=== PATIENT | female | born 1940 | race Caucasian/White ===

== ENCOUNTER 2017-09-05 14:23 | Observation (INO) | payer BC ==
[~2017-09-05] VITALS: Ht 162.6 cm; Wt 59.9 kg
[2017-09-05] MEDS ORDERED: METOPROLOL TARTRATE 1 MG/ML VIAL IV STA (15:05)
[2017-09-05 15:11] LABS: BASO % 0.5 %; BASO ABS # 0.03 K/uL (0-0.2); EOS % 0.8 %; EOS ABS # 0.05 K/uL (0-0.5); HEMATOCRIT 42.9 % (37-47); HEMOGLOBIN 14.4 g/dL (12.0-16.0); IG# 0.01 K/uL (0.00-0.02); LYMPH % 28.3 %; LYMPH ABS # 1.75 K/uL (1.2-3.4); MEAN CELL VOLUME 98.8 fL (80-100); MEAN CORPUSCULAR HEMOGLOBIN 33.2 pg (25-34); MEAN CORPUSCULAR HGB CONC 33.6 g/dl (32-36); MEAN PLATELET VOLUME 9.4 fL (7.4-10.4); MONO % 8.6 %; MONO ABS # 0.53 K/uL (0.11-0.59); NEUT % 61.6 %; NEUT ABS # 3.82 K/uL (1.4-6.5); PLATELET COUNT 230 K/uL (130-400); RED CELL DISTRIBUTION WIDTH CV 12.8 % (11.5-14.5); RED CELL DISTRIBUTION WIDTH SD 46.6 fL (36.4-46.3); WHITE BLOOD COUNT 6.19 K/uL (4.8-10.8)
--- NOTE | 2017-09-05 15:11 | DIAGNOSTIC IMAGING REPORT ---
CHEST ONE VIEW PORTABLE CLINICAL HISTORY: cp dyspnea COMPARISON STUDY: No previous studies for comparison. FINDINGS: The bones soft tissues and hemidiaphragms are normal. The cardiomediastinal silhouette is normal. The lungs are clear. The pulmonary vasculature is normal. IMPRESSION: Negative chest. The above report was generated using voice recognition software. It may contain grammatical, syntax or spelling errors. Electronically signed by: Austin Patel M.D. 09/05/2017 3:10 PM Dictated Date/Time: 09/05/2017 3:10 PM
[2017-09-05 15:22] LABS: PTT PATIENT 22.5 SECONDS (21.0-31.0)
[2017-09-05 15:29] LABS: CALCIUM 9.6 mg/dl (8.5-10.1); CREATININE 0.99 mg/dl (0.60-1.20); POTASSIUM 3.9 mmol/L (3.5-5.1)
[2017-09-05] MEDS ORDERED: HEPARIN 25000 UNIT/500 ML D5W ONE (16:30)
[2017-09-05] MEDS ORDERED: HEPARIN SOD 5000 UNIT/0.5 ML CARP ONE (16:30)
[2017-09-05] MEDS ORDERED: MULT-506 PO (16:44)
[2017-09-05] MEDS ORDERED: ONDANSETRON INJ 2 MG/ML 2 ML VIAL IV PRN (17:00)
[2017-09-05] MEDS ORDERED: ACETAMINOPHEN 325 MG TAB PO PRN (17:00)
--- NOTE | 2017-09-05 19:27 | EMERGENCY ROOM VISIT NOTE ---
History Report prepared by Anjana: Fabiano Burdick Under the Supervision of: Dr. Leonides Singer M.D. First contact with patient: 14:50 Chief Complaint: CARDIAC ASSESSMENT Stated Complaint: HEART ARYTHMIA Nursing Triage Summary: patient had surgery this am on a cataract/ [place] was [place]. she had an EKG afterward and it was abdnormal. asher called her PCP and spoke to them. she went to the PCP and had another EKG and it was abdnormal as well and sent her here for evaluation. patient has been pain free and feels fine. History of Present Illness The patient is a 76 year old female who presents to the Emergency Room with complaints of intermittent heart palpitations beginning a few hours ago. The patient had a cataract removed from her right eye earlier today (5.5 hours ago) , during which she was under anesthesia. She had an ECG following the surgery due to experiencing heart palpitations which showed an abnormality. She was then seen by her PCP afterwards and had a repeat ECG which was still abnormal. The patient denies chest pain, SOB, lightheadedness, fevers, vomiting, diarrhea , or abdominal pain. She has no known history of A-fib, or thyroid disease. She notes that she feels very anxious. The patient was given Ofloxacin and Prednisolone drops following the surgery. She otherwise denies any other medications. Source of History: patient Onset: A few hours ago Quality: other (heart palpitations) Timing: intermittent Modifying Factors (Relieving): other (None) Associated Symptoms: No fevers, No chest pain, No SOB, No vomiting, No abdominal pain Note: The patient denies lightheadedness. Review of Systems See HPI for pertinent positives & negatives. A total of 10 systems reviewed and were otherwise negative. Past Medical & Surgical Medical Problems: (1) Atrial flutter Surgical Problems: (1) History of arthroscopy of left shoulder (2) History of tubal ligation Family History No pertinent family history stated. Social History Smoking Status: Never Smoker Marital Status: Occupation Status: employed Current/Historical Medications Scheduled Multivitamin (Multivitamin), 1 TAB PO DAILY Allergies Coded Allergies: No Known Allergies (Unverified , 09/05/17) Physical Exam Vital Signs Date Time Temp Pulse Resp B/P (MAP) Pulse Ox O2 Delivery O2 Flow Rate FiO2 09/05/17 17:52 82 16 164/93 98 Room Air 09/05/17 16:36 93 22 166/105 97 Room Air 09/05/17 15:30 68 09/05/17 15:30 78 18 141/91 97 Room Air 09/05/17 15:19 126 16 150/95 97 09/05/17 15:18 127 150/95 09/05/17 15:09 127 09/05/17 14:58 98 Room Air 09/05/17 14:33 36.8 129 20 153/98 97 Room Air Physical Exam Constitutional: Vital signs reviewed. Eyes: Conjunctiva are noninjected. Post-operative changes to the right eye. ENT: Pharynx is clear without erythema or exudate. Mucous membranes are moist. Neck supple without meningeal signs. Respiratory: Clear to auscultation bilaterally. Breath sounds are equal bilaterally. Cardiovascular: Tachycardic with a heart rate of 126. Regular rhythm. No rubs or gallops. GI: Soft, nondistended and nontender. Bowel sounds are present. Musculoskeletal: No peripheral edema. No lower extremity tenderness. Integumentary: No cyanosis. Neurological: The patient is awake and alert. No focal deficits. Psychiatric: Normal affect. Medical Decision & Procedures ER Provider Diagnostic Interpretation: Radiology results as stated below per my review and the radiologist's interpretation: CHEST ONE VIEW PORTABLE FINDINGS: The bones soft tissues and hemidiaphragms are normal. The cardiomediastinal silhouette is normal. The lungs are clear. The pulmonary vasculature is normal. IMPRESSION: Negative chest. The above report was generated using voice recognition software. It may contain grammatical, syntax or spelling errors. Electronically signed by: Austin Patel M.D. 09/05/2017 3:10 PM Laboratory Results 09/05/17 15:00 Red Blood Count 4.34, Mean Corpuscular Volume 98.8, Mean Corpuscular Hemoglobin 33.2, Mean Corpuscular Hemoglobin Concent 33.6, Mean Platelet Volume 9.4, Neutrophils (%) (Auto) 61.6, Lymphocytes (%) (Auto) 28.3, Monocytes (%) (Auto) 8.6, Eosinophils (%) (Auto) 0.8, Basophils (%) (Auto) 0.5, Neutrophils # (Auto) 3.82, Lymphocytes # (Auto) 1.75, Monocytes # (Auto) 0.53, Eosinophils # (Auto) 0.05, Basophils # (Auto) 0.03 09/05/17 15:00 Test 09/05/17 15:00 09/05/17 15:07 White Blood Count 6.19 K/uL (4.8-10.8) Red Blood Count 4.34 M/uL (4.2-5.4) Hemoglobin 14.4 g/dL (12.0-16.0) Hematocrit 42.9 % (37-47) Mean Corpuscular Volume 98.8 fL (80-100) Mean Corpuscular Hemoglobin 33.2 pg (25-34) Mean Corpuscular Hemoglobin Concent 33.6 g/dl (32-36) Platelet Count 230 K/uL (130-400) Mean Platelet Volume 9.4 fL (7.4-10.4) Neutrophils (%) (Auto) 61.6 % Lymphocytes (%) (Auto) 28.3 % Monocytes (%) (Auto) 8.6 % Eosinophils (%) (Auto) 0.8 % Basophils (%) (Auto) 0.5 % Neutrophils # (Auto) 3.82 K/uL (1.4-6.5) Lymphocytes # (Auto) 1.75 K/uL (1.2-3.4) Monocytes # (Auto) 0.53 K/uL (0.11-0.59) Eosinophils # (Auto) 0.05 K/uL (0-0.5) Basophils # (Auto) 0.03 K/uL (0-0.2) RDW Standard Deviation 46.6 fL (36.4-46.3) RDW Coefficient of Variation 12.8 % (11.5-14.5) Immature Granulocyte % (Auto) 0.2 % Immature Granulocyte # (Auto) 0.01 K/uL (0.00-0.02) Prothrombin Time 10.7 SECONDS (9.0-12.0) Prothromb Time International Ratio 1.0 (0.9-1.1) Activated Partial Thromboplast Time 22.5 SECONDS (21.0-31.0) Partial Thromboplastin Ratio 0.9 Anion Gap 8.0 mmol/L (3-11) Est Creatinine Clear Calc Drug Dose 42.4 ml/min Estimated GFR () 64.6 Estimated GFR (Non- 55.7 BUN/Creatinine Ratio 14.6 (10-20) Calcium Level 9.6 mg/dl (8.5-10.1) Magnesium Level 2.1 mg/dl (1.8-2.4) Thyroid Stimulating Hormone (TSH) 2.730 uIu/ml (0.300-4.500) Free Thyroxine 1.23 ng/dl (0.80-1.60) Bedside Troponin I < 0.030 ng/ml (0-0.045) Laboratory results as reviewed by me. Medications Administered Medications (Trade) Dose Ordered Sig/Janet Route Start Time Stop Time Status Last Admin Dose Admin Metoprolol Tartrate (Lopressor Iv) 2.5 mg NOW STAT IV 09/05/17 15:05 09/05/17 15:06 DC 09/05/17 15:18 2.5 MG Heparin Sodium/ Dextrose (Heparin 25,000 Unit/500ml D5W) 25,000 unit STK-MED ONCE .ROUTE 09/05/17 16:30 09/05/17 16:31 DC 09/05/17 16:35 25,000 UNIT Heparin Sodium (Porcine) (Heparin Sq 5000 Unit/0.5ml) 5,000 unit STK-MED ONCE .ROUTE 09/05/17 16:30 09/05/17 16:31 DC 09/05/17 16:33 5,000 UNIT ECG Indication: palpitations Rate (beats per minute): 128 Rhythm: sinus tachycardia Findings: no ectopy, other (Non-specific ST/T wave changes inferior and lateral leads.) Change: Patient's electrocardiograms per my interpretation. Pre-Hospital ECG's: ECG from [facility] in [place] at 9:15am this morning showed A-flutter. ECG at [facility] at 2:00pm today showed A-flutter as well. Repeat ECG shows atrial flutter with a variable AV block. No acute ischemic change seen. QRS is 82. ED Course 1451: The patient was evaluated in room B3B. A complete history and physical exam was performed. 1505: Ordered Lopressor 2.5 mg IV. 1526: I checked in on the patient. Her heart rate has dropped to the 80's after receiving Lopressor. 1550: I discussed the patient's test results with her. Her heart rate is in the 70's and 80's, and is still A-flutter. 1600: Upon reevaluation, the patient is resting. I discussed girish's findings with her. She verbalized agreement of the treatment plan. She denies any melanotic stools, or rectal bleeding. The patient will be evaluated for further management. 1608: Ordered Heparin Sodium/Dextrose. Medical Decision This is a 76-year-old female who presents with palpitations. Differential diagnosis includes atrial fibrillation with RVR, dysrhythmia, sinus tachycardia , metabolic derangement, thyroid storm, electrolyte abnormality. I did perform a limited focused review of portions of the patient's old chart on the electronic medical record. The patient has had no recent pertinent visits to this hospital. I did evaluate the patient as noted above. The patient is presenting with palpitations. She otherwise denies any other symptoms. IV access was established. The patient was placed on a continuous vehicle monitor technician. I did order and personally review the patient's 12-lead EKG and chest x-ray as described above. The patient has what initially appeared to be sinus tachycardia. I did obtain her EKGs from earlier today which showed atrial flutter. I therefore treated her with Lopressor 2.5 mg IV. Her rate came down significantly into the 80s. I did order a repeat EKG which shows atrial flutter with variable block. I did order and review the patient's blood work as noted in the electronic medical record. I did reassess the patient multiple times. She remained in atrial flutter but with a normal rate. Discussed the case with the pool hall inspector on-call who recommended placing the patient on IV heparin and admitting her to the hospital. I did talk to her stage technician to make sure that there is no contraindication to the heparin given her recent surgery. He stated that there was no contraindication to heparin. I did start the patient on a heparin drip and gave her initial bolus. I did discuss case with the hospitalist and telephonic nurse case manager. Medication Reconcilliation Current Medication List: was personally reviewed by me Blood Pressure Screening Patient's blood pressure: Elevated blood pressure Blood pressure disposition: Referred to PCP Consults Time Called: 1550 Consulting Physician: Dr. Starks - Cardiology Returned Call: [phone] Starks of Cardiology. He recommends the patient be brought into the hospital for further evaluation. He also recommends placing the patient on IV heparin as long as there is no counter indication from the cataract surgery. Additional Consults: Time Called: 1558 Consulted Physician: Mita WELSH - [facility] Hospitalist Returned Call: [phone] Additional Comments: I spoke with Mita WELSH of [facility]. We discussed the patient and her results. The patient will be further evaluated by Jordan. Time Called: 1605 Consulted Physician: Dr. Torres - Ophthalmology Returned Call: [phone] Additional Comments: I spoke with Dr. Torres of Ophthalmology. He states that there is no counter indication to heparin for the cataract surgery. Impression Primary Impression: Atrial flutter with rapid ventricular response Critical Care I have personally spent 32 minutes of critical care time in the direct management of this patient. This includes bedside care, interpretation of diagnostic studies, and testing, discussion with consultants, patient, and family members, and other required patient management activities. This 32 minutes is in excess of all separately billable procedures. Scribe Attestation The scribe's documentation has been prepared under my direct and personally reviewed by me in its entirety. I confirm that the note above accurately reflects all work, treatment, procedures, and medical decision making performed by me. Departure Information Dispostion Being Evaluated By Hospitalist Referrals Nichole Mishra M.D. (PCP) Patient Instructions My [facility]
--- NOTE | 2017-09-05 19:30 | History and Physical ---
History & Physical Date & Time of Service: Sep 05, 2017 ~ 16:30 Chief Complaint: Fast Heart Rate Primary Care Physician: Nichole Mishra M.D. History of Present Illness 76 year old female who presents to the ED for evaluation of elevated heart rate. Patient underwent cataract surgery today and after the procedure she was found to have an elevated heart rate. She was then evaluated in her PCPs office who found her to be in atrial flutter. She was then referred to the ED for further eval. Patient reports she has felt nervous about the cataract surgery for about the past month. She has had chest pressure at times which she attributes to the anxiety. She denies palpitations. No shortness of breath, lightheadedness, dizziness, diaphoresis, or syncopal events. She denies orthopnea and lower extremity edema. 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 No abdominal pain, nausea, vomiting, or diarrhea. Weight as been stable. No fevers or chills. She denies urinary symptoms. She admits that she has not kept up to date with her routine screenings including colonoscopy, mammograms, and gyne exams. She was seen by a PCP recently for pre op for her cataract surgery but otherwise has not been seen by a physician for almost 30 years. Past Medical/Surgical History Surgical Problems: (1) History of arthroscopy of left shoulder Status: Chronic (2) History of tubal ligation Status: Chronic Family History FH: Alzheimers disease MOTHER Social History Smoking Status: Never Smoker Alcohol Use: occasionally Marital Status: Immunizations History of Tetanus Vaccine?: Yes Tetanus Immunization Date: Aug 15, 2017 History of Pneumococcal: Yes Pneumococcal Date: Aug 15, 2017 Allergies Coded Allergies: No Known Allergies (Unverified , 09/05/17) Home Medications Scheduled Multivitamin (Multivitamin), 1 TAB PO DAILY Review of Systems ROS per HPI, all other systems reviewed and negative Physical Exam Vital Signs Date Time Temp Pulse Resp B/P (MAP) Pulse Ox O2 Delivery O2 Flow Rate FiO2 09/05/17 17:52 82 16 164/93 98 Room Air 09/05/17 16:36 93 22 166/105 97 Room Air 09/05/17 15:30 68 09/05/17 15:30 78 18 141/91 97 Room Air 09/05/17 15:19 126 16 150/95 97 09/05/17 15:18 127 150/95 09/05/17 15:09 127 09/05/17 14:58 98 Room Air 09/05/17 14:33 36.8 129 20 153/98 97 Room Air General Appearance: WD/WN, no apparent distress Head: normocephalic, atraumatic Eyes: normal inspection, EOMI, sclerae normal ENT: hearing grossly normal, + pertinent finding (mucous membranes moist) Neck: supple, no JVD, trachea midline Respiratory/Chest: lungs clear, normal breath sounds, no respiratory distress Cardiovascular: no edema, normal peripheral pulses, + irregularly irregular ( rate in the 90s) Abdomen/GI: normal bowel sounds, non tender, soft, no organomegaly Extremities/Musculoskelatal: normal inspection, no calf tenderness, normal capillary refill Neurologic/Psych: no motor/sensory deficits, alert, normal mood/affect, oriented x 3 Skin: + pertinent finding (left distal sanz - 2cm raised lesion with necrotic appearing base with mild surrouding erythema, no drainage noted) Diagnostics Laboratory Results Results Past 24 Hours Test 09/05/17 15:00 09/05/17 15:07 Range/Units White Blood Count 6.19 4.8-10.8 K/uL Red Blood Count 4.34 4.2-5.4 M/uL Hemoglobin 14.4 12.0-16.0 g/dL Hematocrit 42.9 37-47 % Mean Corpuscular Volume 98.8 80-100 fL Mean Corpuscular Hemoglobin 33.2 25-34 pg Mean Corpuscular Hemoglobin Concent 33.6 32-36 g/dl Platelet Count 230 130-400 K/uL Mean Platelet Volume 9.4 7.4-10.4 fL Neutrophils (%) (Auto) 61.6 % Lymphocytes (%) (Auto) 28.3 % Monocytes (%) (Auto) 8.6 % Eosinophils (%) (Auto) 0.8 % Basophils (%) (Auto) 0.5 % Neutrophils # (Auto) 3.82 1.4-6.5 K/uL Lymphocytes # (Auto) 1.75 1.2-3.4 K/uL Monocytes # (Auto) 0.53 0.11-0.59 K/uL Eosinophils # (Auto) 0.05 0-0.5 K/uL Basophils # (Auto) 0.03 0-0.2 K/uL RDW Standard Deviation 46.6 36.4-46.3 fL RDW Coefficient of Variation 12.8 11.5-14.5 % Immature Granulocyte % (Auto) 0.2 % Immature Granulocyte # (Auto) 0.01 0.00-0.02 K/uL Prothrombin Time 10.7 9.0-12.0 SECONDS Prothromb Time International Ratio 1.0 0.9-1.1 Activated Partial Thromboplast Time 22.5 21.0-31.0 SECONDS Partial Thromboplastin Ratio 0.9 Sodium Level 140 136-145 mmol/L Potassium Level 3.9 3.5-5.1 mmol/L Chloride Level 104 98-107 mmol/L Carbon Dioxide Level 28 21-32 mmol/L Anion Gap 8.0 3-11 mmol/L Blood Urea Nitrogen 15 7-18 mg/dl Creatinine 0.99 0.60-1.20 mg/dl Est Creatinine Clear Calc Drug Dose 42.4 ml/min Estimated GFR () 64.6 Estimated GFR (Non- 55.7 BUN/Creatinine Ratio 14.6 10-20 Random Glucose 86 70-99 mg/dl Calcium Level 9.6 8.5-10.1 mg/dl Magnesium Level 2.1 1.8-2.4 mg/dl Thyroid Stimulating Hormone (TSH) 2.730 0.300-4.500 uIu/ml Free Thyroxine 1.23 0.80-1.60 ng/dl Bedside Troponin I < 0.030 0-0.045 ng/ml Diagnostic Radiology CXR IMPRESSION: Negative chest. Impression Assessment and Plan NEW ONSET ATRIAL FLUTTER - admit to tele - patient presenting after cataract surgery where she was found to have an elevated HR, she was then seen by her PCP where EKG showed atrial flutter - in the ED, EKG showed atrial flutter with 2:1 block - s/p 2.5mg metoprolol IV in the ED with improved in HR; will continue with metoprolol 12.5mg PO q6h - noted WNL electrolytes and TSH; no obvious source of infection - CHADS2 score difficult to calculate given her lack of follow up with primary care but would be at least 1 for age - ED discussed with Dr. Torres from ophthalmology who stated there would not be a contraindication to heparin - heparin started in the ED, will continue with - continue to cycle cardiac enzymes, check resting echo - cardio consult LEFT SANZ LESION - concerning for malignancy - discussed with Dr. Li who advised close outpatient follow up - phone number to scheduled: [phone] RECENT CATARACT SURGERY - needs to have eye pressures checked tomorrow - if not discharged, may need inpatient ophthalmology evaluation DVT PROPHYLAXIS - heparin gtt DISPO - The patient will be placed as observation status for now until further work up is complete. ADDENDUM: This is a 76 year old female with no significant PMH, has not followed with any doctors since her childbirth. Was seen by ophthalmology for cataract surgery. Had HRs in the 130s-140s; was seen by PA in PCP's office and was sent here for further evaluation. Presented here, and found to have atrial flutter. Started on IV heparin and started on PO Lopressor. Echo pending; cardiology consulted. Monitor BP; monitor if Lopressor controls the blood pressure. VTE Prophylaxis VTE Risk Assessment Done? Y/N: Yes Risk Level: Moderate
[2017-09-05] MEDS ORDERED: HEPARIN 25,000 UNIT/500ML D5W 500 ML IV PRN (20:00)
[2017-09-05 20:03] VITALS: BP 121/72; PULSE 80; TEMP 37.2; O2SAT 95
[2017-09-05 20:13] VITALS: BP 147/93; PULSE 107; TEMP 36.7; O2SAT 97; Ht 162.6 cm; Wt 59.9 kg
[2017-09-05] MEDS ORDERED: IV FLUIDS COMPLETED PRN (20:30)
[2017-09-05] MEDS ORDERED: PRED1SUS17 OPR (21:35)
[2017-09-05] MEDS ORDERED: [UNRECOGNIZED DRUG - OTHER] OPR (21:35)
[2017-09-05] MEDS ORDERED: HOME MED ADMINISTRATION ONE (21:45)
[2017-09-05] MEDS: PrednisoLONE ACET 1% OP SUSP 5 ML BTL OPR SCH (22:19)
[2017-09-05] MEDS: OFLOXACIN 0.3% OP SOLN 5 ML BTL OPR SCH (22:20)
[2017-09-05 23:37] VITALS: BP 125/55; PULSE 79; TEMP 36.7; O2SAT 96
[2017-09-06] VITALS (7 sets, daily range): BP systolic 119–156; BP diastolic 78–93; PULSE 70–89; TEMP 36.4–36.8; O2SAT 95–97
[2017-09-06 00:18] LABS: PTT PATIENT 108.7 SECONDS (21.0-31.0)
[2017-09-06 03:28] LABS: HEMATOCRIT 40.2 % (37-47); HEMOGLOBIN 13.2 g/dL (12.0-16.0); MEAN CELL VOLUME 99.8 fL (80-100); MEAN CORPUSCULAR HEMOGLOBIN 32.8 pg (25-34); MEAN CORPUSCULAR HGB CONC 32.8 g/dl (32-36); MEAN PLATELET VOLUME 9.6 fL (7.4-10.4); PLATELET COUNT 216 K/uL (130-400); RED CELL DISTRIBUTION WIDTH CV 12.5 % (11.5-14.5); RED CELL DISTRIBUTION WIDTH SD 45.8 fL (36.4-46.3); WHITE BLOOD COUNT 5.61 K/uL (4.8-10.8)
[2017-09-06 03:49] LABS: BLOOD UREA NITROGEN 17 mg/dl (7-18); CALCIUM 8.7 mg/dl (8.5-10.1); CARBON DIOXIDE 29 mmol/L (21-32); CREATININE 1.08 mg/dl (0.60-1.20); GLUCOSE 100 mg/dl (70-99); POTASSIUM 3.7 mmol/L (3.5-5.1); SODIUM 138 mmol/L (136-145)
[2017-09-06 03:54] LABS: CKMB 1.2 ng/ml (0.5-3.6)
[2017-09-06] MEDS: METOPROLOL TARTRATE 25 MG TAB PO SCH ×4 (06:06→14:04)
[2017-09-06] MEDS: OFLOXACIN 0.3% OP SOLN 5 ML BTL OPR SCH ×3 (06:08→17:00)
[2017-09-06] MEDS: PrednisoLONE ACET 1% OP SUSP 5 ML BTL OPR SCH ×3 (06:08→17:00)
[2017-09-06 06:28] LABS: PTT PATIENT 67.6 SECONDS (21.0-31.0)
[2017-09-06] MEDS ORDERED: MULTIVITAMIN TAB PO SCH (09:00)
--- NOTE | 2017-09-06 10:16 | ECHOCARDIOGRAM REPORT ---
*NOTICE TO RECEIVING DEMOCRAT AGENCY This information is strictly Confidential and protected under [place] law. [place] law prohibits you from making any further disclosure of this information unless further disclosure is expressly permitted by the written consent of the person to whom it pertains or is authorized by law. A general authorization for the release of medical or other information is not sufficient for this purpose. Hospital accepts no responsibility if the information is made available to any other person, INCLUDING THE PATIENT. Interpretation Summary * Name: ERUM TRIPLETT Study Date: 09/06/2017 06:24 AM BP: 132/85 mmHg * Patient Location: .2T\S\S239\S\2 HR: 72 * : 1940 (M/d/yyy) Gender: Female Height: 64 in * Age: 76 yrs Ethnicity: CA Weight: 135 lb * Ordering Physician: Mita Hoffman * Referring Physician: Nichole Mishra * Performed By: Mary Araya RDCS * * Reason For Study: AFLUTTER * BSA: 1.7 m2 * -- Conclusions -- * The left ventricle is normal in size. * There is normal left ventricular wall thickness. * Left ventricular systolic function is low normal. * No regional wall motion abnormalities noted. * Ejection Fraction = 50-55%. * The left atrial size is normal. * The right atrium is moderately dilated. * There is trace mitral regurgitation. * There is trace tricuspid regurgitation. * Doppler findings do not suggest pulmonary hypertension. Procedure Details * A complete two-dimensional transthoracic echocardiogram was performed (2D, M-mode, Doppler and color flow Doppler). Left Ventricle * The left ventricle is normal in size. * There is normal left ventricular wall thickness. * Ejection Fraction = 50-55%. * Left ventricular systolic function is low normal. * No regional wall motion abnormalities noted. Right Ventricle * The right ventricle is normal in size and function. Atria * The left atrial size is normal. * The right atrium is moderately dilated. * No ASD detected; PFO is not assessed. Mitral Valve * The mitral valve anatomy is normal. * There is no mitral valve stenosis. * There is trace mitral regurgitation. Tricuspid Valve * The tricuspid valve is normal. * There is no tricuspid stenosis. * There is trace tricuspid regurgitation. * Doppler findings do not suggest pulmonary hypertension. Aortic Valve * The aortic valve is trileaflet. * No hemodynamically significant valvular aortic stenosis. * No aortic regurgitation is present. Pulmonic Valve * The pulmonic valve is not well visualized. Great Vessels * The aortic root is normal size. Pericardium/Pleural * There is no pericardial effusion. Great Vessels * Normal inferior vena cava diameter and respiratory variation suggests normal central venous pressure. MMode 2D Measurements and Calculations IVSd 0.95 cm IVSs 1.2 cm LVIDd 4.1 cm LVIDs 3.1 cm LVPWd 1.2 cm LVPWs 1.7 cm IVS/LVPW 0.80 FS 24.7 % EDV(Teich) 76.4 ml ESV(Teich) 38.7 ml EF(Teich) 49.4 % EDV(cubed) 71.5 ml ESV(cubed) 30.5 ml EF(cubed) 57.3 % % IVS thick 24.7 % % LVPW thick 42.9 % LV mass(C)d 146.4 grams LV mass(C)dI 88.5 grams/m\S\2 LV mass(C)s 153.7 grams LV mass(C)sI 92.8 grams/m\S\2 SV(Teich) 37.7 ml SI(Teich) 22.8 ml/m\S\2 SV(cubed) 40.9 ml SI(cubed) 24.7 ml/m\S\2 Ao root diam 2.7 cm Ao root area 5.6 cm\S\2 LA dimension 2.7 cm LA/Ao 1.0 LVAd ap4 17.1 cm\S\2 LVLd ap4 6.2 cm EDV(MOD-sp4) 41.7 ml EDV(sp4-el) 40.2 ml LVAs ap4 11.4 cm\S\2 LVLs ap4 5.7 cm ESV(MOD-sp4) 20.4 ml ESV(sp4-el) 19.2 ml EF(MOD-sp4) 51.2 % EF(sp4-el) 52.1 % LVAd ap2 22.9 cm\S\2 LVLd ap2 6.7 cm EDV(MOD-sp2) 66.3 ml EDV(sp2-el) 67.2 ml LVAs ap2 15.3 cm\S\2 LVLs ap2 6.2 cm ESV(MOD-sp2) 34.0 ml ESV(sp2-el) 32.3 ml EF(MOD-sp2) 48.8 % EF(sp2-el) 51.9 % LVLd %diff 6.7 % EDV(MOD-bp) 54.7 ml LVLs %diff 7.6 % ESV(MOD-bp) 27.2 ml EF(MOD-bp) 50.3 % SV(MOD-sp4) 21.4 ml SI(MOD-sp4) 12.9 ml/m\S\2 SV(MOD-sp2) 32.3 ml SI(MOD-sp2) 19.5 ml/m\S\2 SV(MOD-bp) 27.5 ml SI(MOD-bp) 16.6 ml/m\S\2 SV(sp4-el) 20.9 ml SI(sp4-el) 12.6 ml/m\S\2 SV(sp2-el) 34.9 ml SI(sp2-el) 21.1 ml/m\S\2 Doppler Measurements and Calculations Ao V2 max 127.1 cm/sec Ao max PG 6.5 mmHg Ao max PG (full) 4.1 mmHg LV V1 max PG 2.3 mmHg LV V1 max 76.6 cm/sec TR max fang 215.7 cm/sec
--- NOTE | 2017-09-06 13:30 | CARDIOLOGY CONSULTATION ---
DATE OF CONSULTATION: 09/06/2017 REFERRING: Dr. Clancy. INDICATIONS: Atrial flutter. HISTORY OF PRESENT ILLNESS: The patient is a 76-year-old female without prior cardiac history, who presented for elective cataract surgery. During the procedure, was noted on monitor to have atrial flutter. She was referred for PCP evaluation, referred to Emergency Room for further evaluation. Telemetry and EKGs demonstrating atrial flutter with variable AV block. She notes no prior history of arrhythmias, does occasionally feel her heart pounding. Notes no dizziness, lightheadedness, syncope or near syncope. Notes no history of TIA or stroke. Notes no history of diabetes, hypertension, renal or hepatic disease. She is active about her home and job and notes good tolerance without angina, chest pain, shortness of breath, orthopnea. Notes no history of valvular disease. Notes no history of lower extremity edema or claudication. REVIEW OF SYSTEMS: Otherwise notable only for skin lesion on her right leg. ALLERGIES: None. PAST SURGICAL HISTORY: Notable for repair of frozen right shoulder. FAMILY HISTORY: Notable for heart failure in father in his latter years of age 84. SOCIAL HISTORY: The patient resides in [place]. She is a nonsmoker, very rare alcohol user. She is physically active without specific limitation. PHYSICAL EXAMINATION: VITAL SIGNS: Heart rates 75-100, blood pressure is 132/85 and equal in both arms. HEENT: Normocephalic, atraumatic. Nares without discharge. Throat is clear. NECK: Supple without thyromegaly, lymphadenopathy, JVD or bruit. LUNGS: Clear to auscultation. CARDIOVASCULAR: Regularly irregular. There is no audible murmur, gallop or rub. ABDOMEN: Soft, nontender. EXTREMITIES: Without cyanosis or clubbing. There is no specific edema. There is a bandaged lesion on her left calf. NEUROLOGIC: The patient is alert and answering questions appropriately. LABORATORY DATA: White cell count is 5.6, hemoglobin is 13.2, hematocrit is 40.2. Sodium is 138, potassium is 3.7, chloride is 103, bicarbonate is 29, BUN 70, creatinine is 1.0 and glucose is 100. Troponins are normal. TSH is 2.7. Chest x-ray reveals no infiltrate or edema. EKG reveals typical atrial flutter with 2:1 AV block. Echocardiogram by review today demonstrates normal left ventricular size, thickness and low normal LV function without specific segmental abnormalities. There is trace mitral and tricuspid insufficiency. There is moderate right atrial dilatation. IMPRESSION: A 76-year-old female who was found to be in atrial flutter at time of cataract surgery, underwent cataract procedure without difficulty. She is asymptomatic. Notes no specific signs or symptoms of angina, congestive heart failure or arrhythmias. Discussed findings with the patient. RECOMMENDATIONS: We will continue beta toy at 25 mg twice per day of metoprolol for rate control. Given uncertain duration of atrial flutter, I suspect extended duration given exam history. Anticoagulation with planned outpatient followup with cardiology in 3 weeks' time. The patient may be placed on either warfarin or target-oriented anticoagulant with Eliquis. The patient wishes to trial Eliquis if insurances will cover. The patient may be discharged if ambulatory in the hallway.
--- NOTE | 2017-09-06 14:40 | Progress Note ---
Internal Med Progress Note Date of Service: Sep 06, 2017. Provider Documentation: SUBJECTIVE: The patient was seen and examined Admitted with Atrial flutter ,noted s/p cataract surgery yesterday No symptoms reported OBJECTIVE: Vital Signs-as noted below Exam: General-No distress ta rest Eyes-normal ENT-normal Neck-supple Lungs-clear to auscultate bilaterally Heart-Irregular Abdomen-Benign,no masses Extremities-No edema Neuro-AAOx3 Lab data as noted below. ASSESSMENT & PLAN: ATRIAL FLUTTER -Unknown duration - patient presenting after cataract surgery where she was found to have an elevated HR, she was then seen by her PCP where EKG showed atrial flutter - in the ED, EKG showed atrial flutter with 2:1 block - s/p 2.5mg metoprolol IV in the ED with improved in HR; will continue with metoprolol 12.5mg PO q6h - CHADS2 score difficult to calculate given her lack of follow up with primary care but would be at least 1 for age -has been on Heparin after discussion with the Health Coach -Appreciate cardiology input -ECHO;; * The left ventricle is normal in size. * There is normal left ventricular wall thickness. * Left ventricular systolic function is low normal. * No regional wall motion abnormalities noted. * Ejection Fraction = 50-55%. * The left atrial size is normal. * The right atrium is moderately dilated. * There is trace mitral regurgitation. * There is trace tricuspid regurgitation. * Doppler findings do not suggest pulmonary hypertension. On Metoprolol Will start Eliquis/Coumadin LEFT LATERAL MALLEOLAR - concerning for Basal Cell Carcinoma - discussed with Dr. Li who advised close outpatient follow up - phone number to scheduled: [phone] -will need to have an appointment before January RECENT CATARACT SURGERY - needs to have eye pressures checked tomorrow - if not discharged, may need inpatient ophthalmology evaluation -discussed with the Eye Surgeon-will have a follow up in office in a day or two DVT PROPHYLAXIS - heparin gtt DISPO Home today Vital Signs: Date Time Temp Pulse Resp B/P (MAP) Pulse Ox O2 Delivery O2 Flow Rate FiO2 09/06/17 16:58 36.8 75 16 137/80 (99) 96 Room Air 09/06/17 12:00 Room Air 09/06/17 11:56 36.7 89 20 156/93 (114) 97 Room Air 09/06/17 08:00 Room Air 09/06/17 07:43 36.7 72 20 132/85 (101) 97 Room Air 09/06/17 04:00 95 Room Air 09/06/17 03:20 36.4 70 18 119/78 (92) 95 Room Air 09/06/17 00:01 97 Room Air 09/05/17 23:37 36.7 79 17 125/55 (78) 96 Room Air 09/05/17 20:13 36.7 107 18 147/93 97 Room Air 09/05/17 20:03 37.2 80 20 121/72 (88) 95 Room Air 09/05/17 19:45 84 18 158/79 98 Room Air 09/05/17 17:52 82 16 164/93 98 Room Air Lab Results: Results Past 24 Hours Test 09/05/17 21:00 09/05/17 21:12 09/05/17 23:39 09/06/17 03:00 Range/Units Creatine Kinase MB Ratio 0-3.0 Creatine Kinase MB 1.0 0.5-3.6 ng/ml Troponin I < 0.015 0-0.045 ng/ml Activated Partial Thromboplast Time 108.7 21.0-31.0 SECONDS Partial Thromboplastin Ratio 4.2 Test 09/06/17 03:08 09/06/17 05:54 Range/Units White Blood Count 5.61 4.8-10.8 K/uL Red Blood Count 4.03 4.2-5.4 M/uL Hemoglobin 13.2 12.0-16.0 g/dL Hematocrit 40.2 37-47 % Mean Corpuscular Volume 99.8 80-100 fL Mean Corpuscular Hemoglobin 32.8 25-34 pg Mean Corpuscular Hemoglobin Concent 32.8 32-36 g/dl RDW Standard Deviation 45.8 36.4-46.3 fL RDW Coefficient of Variation 12.5 11.5-14.5 % Platelet Count 216 130-400 K/uL Mean Platelet Volume 9.6 7.4-10.4 fL Sodium Level 138 136-145 mmol/L Potassium Level 3.7 3.5-5.1 mmol/L Chloride Level 103 98-107 mmol/L Carbon Dioxide Level 29 21-32 mmol/L Anion Gap 6.0 3-11 mmol/L Blood Urea Nitrogen 17 7-18 mg/dl Creatinine 1.08 0.60-1.20 mg/dl Est Creatinine Clear Calc Drug Dose 38.9 ml/min Estimated GFR () 58.2 Estimated GFR (Non- 50.2 BUN/Creatinine Ratio 15.8 10-20 Random Glucose 100 70-99 mg/dl Calcium Level 8.7 8.5-10.1 mg/dl Creatine Kinase MB 1.2 0.5-3.6 ng/ml Troponin I < 0.015 0-0.045 ng/ml Activated Partial Thromboplast Time 67.6 21.0-31.0 SECONDS Partial Thromboplastin Ratio 2.6
[2017-09-06] MEDS ORDERED: LPR25 PO (16:29)
--- NOTE | 2017-09-06 16:32 | Discharge Instructions ---
Discharge Instructions Date of Service Sep 06, 2017. Admission Reason for Admission: Atrial Flutter Discharge Discharge Diagnosis / Problem: Atrial Flutter ,S/P Cataract surgery Discharge Goals Goal(s): Prevent Disease Progression Activity Recommendations Activity Limitations: as noted below (Can go back to work on Tuesday09/12/17) . Instructions / Follow-Up Instructions / Follow-Up Dr Mishra on 09/09/17 at 11:05 AM.Will need to see cardiology in 3 weeks.Will need sooner Dermatology appointment for left lateral malleolar skin lesion. Current Hospital Diet Patient's current hospital diet: AHA Diet (Heart Healthy) Discharge Diet Recommended Diet: AHA Diet (Heart Healthy) Pending Studies Studies pending at discharge: no Medical Emergencies . Who to Call and When: Medical Emergencies: If at any time you feel your situation is an emergency, please call 911 immediately. . Non-Emergent Contact Non-Emergency issues call your: Primary Care Provider . Past History Medical & Surgical History: (1) Atrial flutter with rapid ventricular response (2) History of arthroscopy of left shoulder (3) History of tubal ligation . "Provider Documentation" section prepared by Alyssa Clancy. . VTE Core Measure Inpt VTE Proph given/why not?: Other Anticoagulation (Eliquis)
[2017-09-06] MEDS ORDERED: ELQ25 PO (17:46)
[2017-09-06] MEDS ORDERED: APIXABAN 2.5 MG TAB PO ONE (18:00)
--- NOTE | 2017-09-07 08:12 | Discharge Summary ---
Discharge Summary Date of Service Sep 07, 2017. Discharge Summary Admission Date: Sep 05, 2017 at 16:50 Discharge Date: Sep 06, 2017 Discharge Disposition: Home Principal Diagnosis: Atrial Flutter ,S/P Cataract surgery Secondary Diagnoses/Problems: Please see H&P and Hospital Progress note Consultations: Cardiology Medication Reconciliation New Medications: Apixaban (Eliquis) 2.5 Mg Tab 10 MG PO UD for 30 Days, #1 TAB 10 mg BID for 7 days and then 5 mg BID Metoprolol Tartrate (Lopressor) 25 Mg Tab 25 MG PO BID for 30 Days, #60 TAB Continued Medications: Multivitamin (Multivitamin) Tab 1 TAB PO DAILY, TAB Prednisolone Acetate (Ophth) (Prednisolone Acetate) 1 % Viola 1 DROPS OPR QID for 5 Days, #5 ML [oxofloxacin] () 3% . 1 DROP OPR QID Admission Information HPI (per Admitting provider): 76 year old female who presents to the ED for evaluation of elevated heart rate. Patient underwent cataract surgery today and after the procedure she was found to have an elevated heart rate. She was then evaluated in her PCPs office who found her to be in atrial flutter. She was then referred to the ED for further eval. Patient reports she has felt nervous about the cataract surgery for about the past month. She has had chest pressure at times which she attributes to the anxiety. She denies palpitations. No shortness of breath, lightheadedness, dizziness, diaphoresis, or syncopal events. She denies orthopnea and lower extremity edema. 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 No abdominal pain, nausea, vomiting, or diarrhea. Weight as been stable. No fevers or chills. She denies urinary symptoms. She admits that she has not kept up to date with her routine screenings including colonoscopy, mammograms, and gyne exams. She was seen by a PCP recently for pre op for her cataract surgery but otherwise has not been seen by a physician for almost 30 years. Past Medical/Surgical History Surgical Problems: (1) History of arthroscopy of left shoulder Status: Chronic (2) History of tubal ligation Status: Chronic Family History FH: Alzheimers disease MOTHER Social History Smoking Status: Never Smoker Alcohol Use: occasionally Marital Status: Immunizations History of Tetanus Vaccine?: Yes Tetanus Immunization Date: Aug 15, 2017 History of Pneumococcal: Yes Pneumococcal Date: Aug 15, 2017 Allergies Coded Allergies: No Known Allergies (Unverified , 09/05/17) Home Medications Scheduled Multivitamin (Multivitamin), 1 TAB PO DAILY Review of Systems ROS per HPI, all other systems reviewed and negative Physical Ex - H&P Physical Exam Vital Signs Date Time Temp Pulse Resp B/P (MAP) Pulse Ox O2 Delivery O2 Flow Rate FiO2 09/05/17 17:52 82 16 164/93 98 Room Air 09/05/17 16:36 93 22 166/105 97 Room Air 09/05/17 15:30 68 09/05/17 15:30 78 18 141/91 97 Room Air 09/05/17 15:19 126 16 150/95 97 09/05/17 15:18 127 150/95 09/05/17 15:09 127 09/05/17 14:58 98 Room Air 09/05/17 14:33 36.8 129 20 153/98 97 Room Air General Appearance: WD/WN, no apparent distress Head: normocephalic, atraumatic Eyes: normal inspection, EOMI, sclerae normal ENT: hearing grossly normal, + pertinent finding (mucous membranes moist) Neck: supple, no JVD, trachea midline Respiratory/Chest: lungs clear, normal breath sounds, no respiratory distress Cardiovascular: no edema, normal peripheral pulses, + irregularly irregular ( rate in the 90s) Abdomen/GI: normal bowel sounds, non tender, soft, no organomegaly Extremities/Musculoskelatal: normal inspection, no calf tenderness, normal capillary refill Neurologic/Psych: no motor/sensory deficits, alert, normal mood/affect, oriented x 3 Skin: + pertinent finding (left distal sanz - 2cm raised lesion with necrotic appearing base with mild surrouding erythema, no drainage noted) Diagnostics - H&P Diagnostics Laboratory Results Results Past 24 Hours Test 09/05/17 15:00 09/05/17 15:07 Range/Units White Blood Count 6.19 4.8-10.8 K/uL Red Blood Count 4.34 4.2-5.4 M/uL Hemoglobin 14.4 12.0-16.0 g/dL Hematocrit 42.9 37-47 % Mean Corpuscular Volume 98.8 80-100 fL Mean Corpuscular Hemoglobin 33.2 25-34 pg Mean Corpuscular Hemoglobin Concent 33.6 32-36 g/dl Platelet Count 230 130-400 K/uL Mean Platelet Volume 9.4 7.4-10.4 fL Neutrophils (%) (Auto) 61.6 % Lymphocytes (%) (Auto) 28.3 % Monocytes (%) (Auto) 8.6 % Eosinophils (%) (Auto) 0.8 % Basophils (%) (Auto) 0.5 % Neutrophils # (Auto) 3.82 1.4-6.5 K/uL Lymphocytes # (Auto) 1.75 1.2-3.4 K/uL Monocytes # (Auto) 0.53 0.11-0.59 K/uL Eosinophils # (Auto) 0.05 0-0.5 K/uL Basophils # (Auto) 0.03 0-0.2 K/uL RDW Standard Deviation 46.6 36.4-46.3 fL RDW Coefficient of Variation 12.8 11.5-14.5 % Immature Granulocyte % (Auto) 0.2 % Immature Granulocyte # (Auto) 0.01 0.00-0.02 K/uL Prothrombin Time 10.7 9.0-12.0 SECONDS Prothromb Time International Ratio 1.0 0.9-1.1 Activated Partial Thromboplast Time 22.5 21.0-31.0 SECONDS Partial Thromboplastin Ratio 0.9 Sodium Level 140 136-145 mmol/L Potassium Level 3.9 3.5-5.1 mmol/L Chloride Level 104 98-107 mmol/L Carbon Dioxide Level 28 21-32 mmol/L Anion Gap 8.0 3-11 mmol/L Blood Urea Nitrogen 15 7-18 mg/dl Creatinine 0.99 0.60-1.20 mg/dl Est Creatinine Clear Calc Drug Dose 42.4 ml/min Estimated GFR () 64.6 Estimated GFR (Non- 55.7 BUN/Creatinine Ratio 14.6 10-20 Random Glucose 86 70-99 mg/dl Calcium Level 9.6 8.5-10.1 mg/dl Magnesium Level 2.1 1.8-2.4 mg/dl Thyroid Stimulating Hormone (TSH) 2.730 0.300-4.500 uIu/ml Free Thyroxine 1.23 0.80-1.60 ng/dl Bedside Troponin I < 0.030 0-0.045 ng/ml Diagnostic Radiology CXR IMPRESSION: Negative chest. Impression - H&P Impression Assessment and Plan NEW ONSET ATRIAL FLUTTER - admit to tele - patient presenting after cataract surgery where she was found to have an elevated HR, she was then seen by her PCP where EKG showed atrial flutter - in the ED, EKG showed atrial flutter with 2:1 block - s/p 2.5mg metoprolol IV in the ED with improved in HR; will continue with metoprolol 12.5mg PO q6h - noted WNL electrolytes and TSH; no obvious source of infection - CHADS2 score difficult to calculate given her lack of follow up with primary care but would be at least 1 for age - ED discussed with Dr. Torres from ophthalmology who stated there would not be a contraindication to heparin - heparin started in the ED, will continue with - continue to cycle cardiac enzymes, check resting echo - cardio consult LEFT SANZ LESION - concerning for malignancy - discussed with Dr. Li who advised close outpatient follow up - phone number to scheduled: [phone] RECENT CATARACT SURGERY - needs to have eye pressures checked tomorrow - if not discharged, may need inpatient ophthalmology evaluation DVT PROPHYLAXIS - heparin gtt DISPO - The patient will be placed as observation status for now until further work up is complete. ADDENDUM: This is a 76 year old female with no significant PMH, has not followed with any doctors since her childbirth. Was seen by ophthalmology for cataract surgery. Had HRs in the 130s-140s; was seen by PA in PCP's office and was sent here for further evaluation. Presented here, and found to have atrial flutter. Started on IV heparin and started on PO Lopressor. Echo pending; cardiology consulted. Monitor BP; monitor if Lopressor controls the blood pressure. VTE Prophylaxis VTE Risk Assessment Done? Y/N: Yes Risk Level: Moderate Physical Exam (per Admitting): General Appearance: WD/WN, no apparent distress Head: normocephalic, atraumatic Eyes: normal inspection, EOMI, sclerae normal ENT: hearing grossly normal, + pertinent finding (mucous membranes moist) Neck: supple, no JVD, trachea midline Respiratory/Chest: lungs clear, normal breath sounds, no respiratory distress Cardiovascular: no edema, normal peripheral pulses, + irregularly irregular (rate in the 90s) Abdomen/GI: normal bowel sounds, non tender, soft, no organomegaly Extremities/Musculoskelatal: normal inspection, no calf tenderness, normal capillary refill Neurologic/Psych: no motor/sensory deficits, alert, normal mood/affect, oriented x 3 Skin: + pertinent finding (left distal sanz - 2cm raised lesion with necrotic appearing base with mild surrouding erythema, no drainage noted) Hospital Course ATRIAL FLUTTER -Unknown duration - patient presenting after cataract surgery where she was found to have an elevated HR, she was then seen by her PCP where EKG showed atrial flutter - in the ED, EKG showed atrial flutter with 2:1 block - s/p 2.5mg metoprolol IV in the ED with improved in HR; will continue with metoprolol 12.5mg PO q6h - CHADS2 score difficult to calculate given her lack of follow up with primary care but would be at least 1 for age -has been on Heparin after discussion with the Lens Polisher -Appreciate cardiology input -ECHO;; * The left ventricle is normal in size. * There is normal left ventricular wall thickness. * Left ventricular systolic function is low normal. * No regional wall motion abnormalities noted. * Ejection Fraction = 50-55%. * The left atrial size is normal. * The right atrium is moderately dilated. * There is trace mitral regurgitation. * There is trace tricuspid regurgitation. * Doppler findings do not suggest pulmonary hypertension. On Metoprolol Will start Eliquis/Coumadin LEFT LATERAL MALLEOLAR - concerning for Basal Cell Carcinoma - discussed with Dr. Li who advised close outpatient follow up - phone number to scheduled: [phone] -will need to have an appointment before January RECENT CATARACT SURGERY - needs to have eye pressures checked tomorrow - if not discharged, may need inpatient ophthalmology evaluation -discussed with the Eye Surgeon-will have a follow up in office in a day or two DVT PROPHYLAXIS - heparin gtt DISPO Home today Total time spent on discharge = 35 minutes This includes examination of the patient, discharge planning, medication reconciliation, and communication with other providers. Discharge Instructions Date of Service Sep 06, 2017. Admission Reason for Admission: Atrial Flutter Discharge Discharge Diagnosis / Problem: Atrial Flutter ,S/P Cataract surgery Discharge Goals Goal(s): Prevent Disease Progression Activity Recommendations Activity Limitations: as noted below (Can go back to work on Tuesday09/12/17) . Instructions / Follow-Up Instructions / Follow-Up Dr Mishra on 09/09/17 at 11:05 AM.Will need to see cardiology in 3 weeks.Will need sooner Dermatology appointment for left lateral malleolar skin lesion. Current Hospital Diet Patient's current hospital diet: AHA Diet (Heart Healthy) Discharge Diet Recommended Diet: AHA Diet (Heart Healthy) Pending Studies Studies pending at discharge: no Medical Emergencies . Who to Call and When: Medical Emergencies: If at any time you feel your situation is an emergency, please call 911 immediately. . Non-Emergent Contact Non-Emergency issues call your: Primary Care Provider . Past History Medical & Surgical History: (1) Atrial flutter with rapid ventricular response (2) History of arthroscopy of left shoulder (3) History of tubal ligation . "Provider Documentation" section prepared by Alyssa Clancy. . VTE Core Measure Inpt VTE Proph given/why not?: Other Anticoagulation (Eliquis) <Electronically signed by Alyssa Clancy M.D.> Signed: 09/06/17 3922 Signed: Additional Copies To Nichole Mishra M.D.
== END 2017-09-06 18:08 | disposition home or self-care (01) ==
LOC: C.EDB 14:26 → C.2T 16:50 → ENRESERV 19:13
PROVIDERS: ADMIT Family Medicine; ATTEND Internal Medicine
DX: I48.92 Unspecified atrial flutter (principal); Z98.41 Cataract extraction status, right eye; L98.9 Disorder of the skin and subcutaneous tissue, unspecified; Z79.52 Long term (current) use of systemic steroids; Z82.49 Family history of ischemic heart disease and other diseases of the circulatory system

== ENCOUNTER → 2017-09-29 | Day surgery (SDC) | payer BC ==
[~2017-09-29] VITALS: Ht 162.6 cm; Wt 60.0 kg
[~2017-09-29] MED LIST: BIOT1CAP8; ELQ25 PO; LIDOCAINE HCL 2% 2 ML VIAL (20MG/ML) ONE; LPR25 PO; MULT-506 PO; PRED1SUS17 OPR; PROPOFOL IV EMULSION 10 MG/ML 20 ML VIAL IV ONE; [UNRECOGNIZED DRUG - OTHER] OPR
[2017-09-29 06:54] VITALS: BP 170/108; PULSE 78; TEMP 36.5; O2SAT 97; Ht 162.6 cm; Wt 60.0 kg
[2017-09-29 07:28] VITALS: BP 162/82; PULSE 91; O2SAT 99
--- NOTE | 2017-09-29 07:37 | History & Physical Bridge Note ---
H&P Re-Evaluation Bridge Note: I have examined the patient, reviewed the History & Physical and in the interval since the performance of the History & Physical I have noted the following changes of clinical significance: No changes noted
--- NOTE | 2017-09-29 07:42 | Cardiology Procedure Brief Nt ---
Preliminary Cardiology Note Procedure Date Sep 29, 2017. Pre-Procedure Diagnosis Typical atrial flutter Post-Procedure Diagnosis Successful synchronized electrical cardioversion Procedure(s) Performed Successful synchronized electrical cardioversion Photoengraving Supervisor Gabriel Director Of Student Services(s) None Estimated Blood Loss None Preliminary Findings After informed consent obtained, TIMEOUT, patient wasa sedated per anesthesia consult. Successful synchronized electrical cardioversion was performed using single 100 J biphasic shock with good tolerance EKG post-- Sinus bradycardia 46 bpm NSST change only QTc 397 Recommendations Medical therapy with cardiology follow up Fluids (cc crystalloids) 100 Specimens None Complication(s) None Disposition Invoice Coder holding area
--- NOTE | 2017-09-29 07:50 | Discharge Instructions ---
Discharge Instructions Procedure Procedure Date: Sep 29, 2017. Reason for Visit: A Flutter *Dr Rios Doing* W/ Anesthesia. Discharge Discharge Date: Sep 29, 2017. Discharge Diagnosis: Successful synchronized electrical cardioversion Last Recorded Wt (Kilograms): 60 Anesthesia Post Anesthesia Instructions: If you have had General Anesthesia or IV Sedation: * Do not drive today. * Resume driving when surgeon permits. * Do not make important decisions or sign legal documents today. * Call surgeon for: 1. Temperature elevations greater than 101 degrees F. 2. Uncontrollable pain. 3. Excessive bleeding. 4. Persistent nausea and vomiting. 5. Medication intolerance (nausea, vomiting or rash). * For nausea and vomiting use only clear liquids such as: tea, soda, bouillon until nausea subsides, then gradually increase diet as tolerated. * If you have any concerns or questions, call your surgeon's office. If physician is unavailable and it is an emergency, call 911 or go to the nearest emergency room. Instructions Activity Recommendations: limitations as noted below Recommended Home Diet: resume previous diet Allergies: Coded Allergies: No Known Allergies (Unverified , 09/05/17) Provider Instructions ACTIVITY RECOMMENDATIONS: Resume activities as tolerated with no limitations unless specified. __ No lifting over __ pounds for 24 hours. __ Do not engage in vigorous exercise, sexual activity, or sports for 24 hours. __ Do not drive or operate any motorized equipment for 24 hours. __ You may return to work/school tomorrow. _ _ Follow Up Follow-up with: Dr Rios as scheduled Vicky Gamezy Recommendations: Call your doctor if: * Temperature above 101 degrees * Pain not relieved by pain medicine ordered * There is increased drainage or redness from any incision * You have any unanswered questions or concerns. Your Doctors Instructions noted above were prepared by provider Aaron Rios. Patient Signature Section: Patient Instructions Signature Page Sarah Powell Patient (or Guardian) Signature/Date: I have read and understand the instructions given to me by my caregivers. Caregiver/RN/Doctor Signature/Date: The above-named patient and/or guardian has received patient instructions on this date. + Original Patient Signature Page (only) stays with chart. Please make copy for patient.
--- NOTE | 2017-09-29 08:12 | CARDIOVERSION ---
DATE OF OPERATION: 09/29/2017 PROCEDURE: Synchronized electrical cardioversion. INDICATIONS: Atrial flutter typical with variable heart rate response. BRIEF HISTORY: The patient is a 77-year-old female who recently observed atrial flutter with elevated ventricular response rate with difficult rate to control. She has been appropriately anticoagulated and is referred now for synchronized electrical cardioversion as part of arrhythmia management. DESCRIPTION OF PROCEDURE: After the procedure and risks were explained in detail to the patient, informed consent was obtained. Anesthesia consult was placed with Dr. Martel and patient sedated with continuous heart rate, blood pressure and oxygen saturation monitoring. Synchronized electrical cardioversion then was performed using single 100 joule biphasic shock with successful conversion to sinus rhythm. Post-procedure, the patient aroused having tolerated it well with resting rhythm in sinus bradycardia. EKG post-procedure demonstrated sinus bradycardia at a rate of [address] segment changes. QT corrected at 397. FINAL IMPRESSION: Successful synchronized electrical cardioversion with typical atrial flutter. RECOMMENDATIONS: Continued medical management with cardiology followup. I attest to the content of the Intraoperative Record and any orders documented therein. Any exception s are noted below.
--- NOTE | 2017-09-29 08:33 | Anesthesiology Progress Note ---
Anesthesia Post Op Note Date & Time Sep 29, 2017 at 08:32 Vital Signs Pain Intensity: 0 Vital Signs Past 12 Hours Date Time Temp Pulse Resp B/P (MAP) Pulse Ox O2 Delivery O2 Flow Rate FiO2 09/29/17 08:00 51 16 116/61 (79) 95 Room Air 09/29/17 07:55 50 16 132/64 (86) 96 Room Air 09/29/17 07:50 56 16 117/63 (81) 97 Room Air 09/29/17 07:45 45 16 105/60 (75) 98 Room Air 09/29/17 07:40 46 16 99/53 (68) 100 Room Air 09/29/17 07:38 50 16 103/51 (68) 98 Room Air 09/29/17 07:35 47 16 99/42 (61) 99 Oxymask 15 09/29/17 07:32 49 18 105/58 (74) 99 Oxymask 15 09/29/17 07:30 46 18 105/55 (72) 99 Oxymask 15 09/29/17 07:28 91 18 162/82 99 Room Air 09/29/17 07:28 91 18 162/82 (108) 99 Room Air 09/29/17 06:54 36.5 78 18 170/108 (128) 97 Room Air Notes Mental Status: alert / awake / arousable, participated in evaluation Pt Amnestic to Procedure: Yes Nausea / Vomiting: adequately controlled Pain: adequately controlled Airway Patency, RR, SpO2: stable & adequate BP & HR: stable & adequate Hydration State: stable & adequate Anesthetic Complications: no major complications apparent
[2017-09-29 09:00] VITALS: BP 135/70; PULSE 56; O2SAT 98
== END | disposition home or self-care (01) ==
LOC: C.CATH 06:24
PROVIDERS: ATTEND Internal Medicine Cardiovascular Disease
DX: I48.91 Unspecified atrial fibrillation (principal); Z79.01 Long term (current) use of anticoagulants; Z82.49 Family history of ischemic heart disease and other diseases of the circulatory system; Z98.890 Other specified postprocedural states